=== PATIENT | female | born 1995 | race Two or more races ===

== ENCOUNTER 2016-09-30 23:34 | Emergency (ER) | payer SELFPAY ==
[~2016-09-30] VITALS: Ht 167.6 cm; Wt 81.6 kg
[~2016-09-30 23:34] MED LIST: FAMO-63 PO; ONDA4TAB10 SL
[2016-10-01 00:02] VITALS: BP 125/71
[2016-10-01] MEDS ORDERED: NAPR500T PO (00:31)
--- NOTE | 2016-10-01 00:31 | PHYS DOC ---
Past Medical History Past Medical History: No Pertinent History Past Surgical History: Alcohol Use: None Drug Use: None Adult General Chief Complaint Chief Complaint: WRIST PAIN [facility] HPI Patient is a 21 year old female with c/o left wrist pain after FOOSH Review of Systems Review of Systems Constitutional: Denies fever or chills [] Eyes: Denies change in visual acuity, redness, or eye pain [] HENT: Denies nasal congestion or sore throat [] Respiratory: Denies cough or shortness of breath [] Cardiovascular: No additional information not addressed in HPI [] GI: Denies abdominal pain, nausea, vomiting, bloody stools or diarrhea [] : Denies dysuria or hematuria [] Musculoskeletal: Denies back pain or joint pain [] Integument: Denies rash or skin lesions [] Neurologic: Denies headache, focal weakness or sensory changes [] Endocrine: Denies polyuria or polydipsia [] Allergies Allergies Allergies Coded Allergies Type Severity Reaction Last Updated Verified No Known Drug Allergies 04/16/16 No Physical Exam Physical Exam Constitutional: Well developed, well nourished, no acute distress, non-toxic appearance. [] HENT: Normocephalic, atraumatic, bilateral external ears normal, oropharynx moist, no oral exudates, nose normal. [] Eyes: PERRLA, EOMI, conjunctiva normal, no discharge. [] Neck: Normal range of motion, no tenderness, supple, no stridor. [] Cardiovascular:Heart rate regular rhythm, no murmur [] Lungs & Thorax: Bilateral breath sounds clear to auscultation [] Abdomen: Bowel sounds normal, soft, no tenderness, no masses, no pulsatile masses. [] Skin: Warm, dry, no erythema, no rash. [] Back: No tenderness, no CVA tenderness. [] Extremities: left wrist, no swelling, no ecchymosis, full ROM without pain Neurologic: Alert and oriented X 3, normal motor function, normal sensory function, no focal deficits noted. [] Psychologic: Affect normal, judgement normal, mood normal. [] left wrist placed in a velcro splint by nursing staff. Pt tolerated well, NVI Current Patient Data Vital Signs Vital Signs Date Time Temp Pulse Resp B/P (MAP) Pulse Ox O2 Delivery O2 Flow Rate FiO2 10/01/16 00:02 98.4 68 16 97 Room Air 98.4 EKG EKG [] Radiology/Procedures Radiology/Procedures [] Impressions: neg left wrist x-ray, Dr. Griffin Course & Med Decision Making Course & Med Decision Making Pertinent Labs and Imaging studies reviewed. (See chart for details) [] Dragon Disclaimer Dragon Disclaimer This electronic medical record was generated, in whole or in part, using a voice recognition dictation system. Departure Departure Impression: Primary Impression: Left wrist sprain Disposition: HOME, SELF-CARE Condition: STABLE Referrals: NO PCP (PCP) Patient Instructions: Wrist Sprain with [facility]hab[facility] Scripts Naproxen (NAPROSYN) 500 Mg Tablet 1 TAB PO BID Y for PAIN MDD 2, #30 TAB 1 Refill Prov: JOANN GIL APRN 10/01/16 JOANN GIL APRN October 01, 2016 00:31
--- NOTE | 2016-10-01 07:35 | RAD ---
Left wrist, 3 views, 09/30/2016: History: Fall, pain No fracture or dislocation is identified. The soft tissues are unremarkable. IMPRESSION: No acute bony abnormality is detected.
== END 2016-10-01 00:45 | disposition home or self-care (01) ==
LOC: ER 23:34
DX: S63.502A Unspecified sprain of left wrist, initial encounter (principal); W19.XXXA Unspecified fall, initial encounter; Y93.89 Activity, other specified; Y92.89 Other specified places as the place of occurrence of the external cause; Y99.8 Other external cause status
CPT/HCPCS: 29125; 73110; 99284-25